=== PATIENT | male | born 1965 | race Caucasian/White ===

== ENCOUNTER 2020-05-08 16:16 | Emergency (ER) | payer OTHER ==
[~2020-05-08 16:16] MED LIST: ASPIRIN EC81 MG PO; ATORVASTATIN CA40 MG PO; BENTYL 20MG TAB20 MG PO; CARVEDILOL6.25 MG PO; CLOPIDOGREL75 MG PO; LISINOPRIL40 MG PO; MELOXICAM15 MG PO; NITROSTAT0.4 MG SL; NORVASC 5 MG TAB5 MG PO; PANTOPRAZOLE SO40 MG PO; VENTOLIN HFA 66.7 GM INH; ZOCOR 40 MG TAB40 MG PO
[2020-05-08 17:32] LABS: HEMOGLOBIN 14.4 gm/dl (14.0-17.5); RED BLOOD COUNT 4.59 M/UL (4.20-5.50); WHITE BLOOD COUNT 10.2 K/UL (4.5-11.0)
[2020-05-08 17:54] LABS: BUN/CREATININE RATIO 13 (0-10)
== END 2020-05-08 18:18 | disposition home or self-care (01) ==
LOC: ER1 16:16
PROVIDERS: Physician Assistant
DX: R60.0 Localized edema (principal); I25.2 Old myocardial infarction; J44.9 Chronic obstructive pulmonary disease, unspecified; I11.9 Hypertensive heart disease without heart failure; Z95.5 Presence of coronary angioplasty implant and graft; F17.210 Nicotine dependence, cigarettes, uncomplicated
CPT/HCPCS: 36415; 71045; 80053; 82550; 82553; 83874; 83880; 84484; 85025; 93005; 99285

== ENCOUNTER → 2020-07-08 | Outpatient (CLI) | payer OTHER ==
[~2020-07-08] MED LIST changes: +ALBUTEROL2.5 MG/3 M INH; +CRESTOR20 MG PO; +K-DUR TAB 10 M10 MEQ PO; +K-DUR TAB 20 M20 MEQ PO; +LASIX 40 MG TAB40 MG PO; +MEDROL DOSEPAK 24 MG PO; +METOPROLOL SUCC25 MG PO; +METOPROLOL SUCC50 MG PO; +NEXIUM20 MG PO; +POTASSIUM CHLO10 ME1 PO; +PRILOSEC OTC20 MG PO; +SPIRIVA RESPIMAT4 GM INH; +SPIRONOLACTONE25 MG PO
== END ==
LOC: HEART 5 10:32
DX: J44.9 Chronic obstructive pulmonary disease, unspecified (principal); I50.9 Heart failure, unspecified
CPT/HCPCS: 71046; 94060; 94729

== ENCOUNTER 2020-07-22 23:10 | Inpatient (IN) | payer OTHER ==
[~2020-07-22] VITALS: Ht 175.3 cm; Wt 119.4 kg
[~2020-07-22 23:10] MED LIST changes: -ALBUTEROL2.5 MG/3 M INH; -CRESTOR20 MG PO; -K-DUR TAB 10 M10 MEQ PO; -K-DUR TAB 20 M20 MEQ PO; -LASIX 40 MG TAB40 MG PO; -MEDROL DOSEPAK 24 MG PO; -METOPROLOL SUCC25 MG PO; -METOPROLOL SUCC50 MG PO; -NEXIUM20 MG PO; -POTASSIUM CHLO10 ME1 PO; -PRILOSEC OTC20 MG PO; -SPIRIVA RESPIMAT4 GM INH; -SPIRONOLACTONE25 MG PO
[2020-07-23 00:25] LABS: HEMOGLOBIN 13.5 gm/dl (14.0-17.5); RED BLOOD COUNT 4.46 M/UL (4.20-5.50); WHITE BLOOD COUNT 11.6 K/UL (4.5-11.0)
[2020-07-23 01:00] LABS: BUN/CREATININE RATIO 21 (0-10)
[2020-07-23] MEDS ORDERED: LASIX 40 MG TAB40 MG PO (09:24)
[2020-07-23] MEDS ORDERED: METOPROLOL SUCC25 MG PO (09:26)
[2020-07-23] MEDS ORDERED: PRILOSEC OTC20 MG PO (09:29)
[2020-07-23] MEDS ORDERED: ALBUTEROL2.5 MG/3 M INH (09:30)
[2020-07-23] MEDS ORDERED: POTASSIUM CHLO10 ME1 PO (09:30)
[2020-07-24 05:34] LABS: HEMOGLOBIN 13.1 gm/dl (14.0-17.5); RED BLOOD COUNT 4.33 M/UL (4.20-5.50)
[2020-07-24 05:36] LABS: WHITE BLOOD COUNT 19.1 K/UL (4.5-11.0)
[2020-07-24 05:50] LABS: BUN/CREATININE RATIO 28 (0-10)
[2020-07-24 11:42] LABS: BORDETELLA PARAPERTUSSIS Not Detected (Not Detectd); BORDETELLA PERTUSSIS Not Detected (Not Detectd); CHLAMYDIA PNEUMONIAE Not Detected (Not Detectd); CORONAVIRUS HKU1 Not Detected (Not Detectd); CORONAVIRUS NL63 Not Detected (Not Detectd); CORONAVIRUS OC43 Not Detected (Not Detectd); CORONOAVIRUS 229E Not Detected (Not Detectd); HUMAN METAPNEUMOVIRUS Not Detected (Not Detectd); HUMAN RHINOVIRUS/ENTEROVIRUS Not Detected (Not Detectd); INFLUENZA A Not Detected (Not Detectd); INFLUENZA B Not Detected (Not Detectd); MYCOPLASMA PNEUMONIAE Not Detected (Not Detectd); PARAINFLUENZA VIRUS 1 Not Detected (Not Detectd); PARAINFLUENZA VIRUS 2 Not Detected (Not Detectd); PARAINFLUENZA VIRUS 3 Not Detected (Not Detectd); PARAINFLUENZA VIRUS 4 Not Detected (Not Detectd); RESPIRATORY SYNCYTIAL VIRUS Not Detected (Not Detectd)
[2020-07-24 14:10] LABS: SARS-CoV-2 NOT DETECTED (Not Detectd)
[2020-07-25 06:07] LABS: HEMOGLOBIN 13.6 gm/dl (14.0-17.5); RED BLOOD COUNT 4.5 M/UL (4.20-5.50)
[2020-07-25 06:10] LABS: WHITE BLOOD COUNT 11.1 K/UL (4.5-11.0)
[2020-07-25 06:38] LABS: BUN/CREATININE RATIO 29 (0-10)
[2020-07-26 03:53] LABS: HEMOGLOBIN 13.2 gm/dl (14.0-17.5); RED BLOOD COUNT 4.36 M/UL (4.20-5.50); WHITE BLOOD COUNT 9.4 K/UL (4.5-11.0)
[2020-07-26 04:08] LABS: BUN/CREATININE RATIO 28 (0-10)
[2020-07-27 03:59] LABS: HEMOGLOBIN 13.3 gm/dl (14.0-17.5); RED BLOOD COUNT 4.42 M/UL (4.20-5.50); WHITE BLOOD COUNT 10.1 K/UL (4.5-11.0)
[2020-07-27 04:56] LABS: BUN/CREATININE RATIO 33 (0-10)
[2020-07-28 07:10] LABS: BUN/CREATININE RATIO 27 (0-10)
[2020-07-29 06:41] LABS: RED BLOOD COUNT 4.28 M/UL (4.20-5.50); WHITE BLOOD COUNT 9.9 K/UL (4.5-11.0)
[2020-07-29 07:16] LABS: BUN/CREATININE RATIO 31 (0-10)
[2020-07-29 08:15] LABS: ANTISTREPTOLYSIN O AB 72.1 IU/mL (0.0-200.0); COMPLEMENT C3, SERUM 160 mg/dL (82-167); COMPLEMENT C4, SERUM 25 mg/dL (12-38)
[2020-07-29 11:15] LABS: HBSAG SCREEN Negative (Negative); HEP B CORE AB, TOT Negative (Negative); HEP C VIRUS AB <0.1 (0.0-0.9)
[2020-07-29 12:15] LABS: ANTI-DSDNA ANTIBODIES 1 IU/mL (0-9)
[2020-07-29 16:11] LABS: A/G RATIO 0.9 (0.7-1.7); ALBUMIN 2.6 g/dL (2.9-4.4); ALPHA-1-GLOBULIN 0.3 g/dL (0.0-0.4); ALPHA-2-GLOBULIN 0.8 g/dL (0.4-1.0); ATYPICAL PANCA <1:20 titer (Neg:<1:20); BETA GLOBULIN 1.2 g/dL (0.7-1.3); CYTOPLASMIC (C-ANCA) 1:20 titer (Neg:<1:20); GAMMA GLOBULIN 0.7 g/dL (0.4-1.8); IMMUNOGLOBULIN A, QN, SERUM 461 mg/dL (90-386); IMMUNOGLOBULIN G, QN, SERUM 612 mg/dL (603-1613); IMMUNOGLOBULIN M, QN, SERUM 71 mg/dL (20-172); M-SPIKE Not Observed g/dL (Not Observed); PERINUCLEAR (P-ANCA) <1:20 titer (Neg:<1:20); PROTEIN, TOTAL, SERUM 5.6 g/dL (6.0-8.5)
[2020-07-30 07:57] LABS: BUN/CREATININE RATIO 35 (0-10)
[2020-08-02 14:09] LABS: M-SPIKE, % Not Observed % (Not Observed); PROTEIN,TOTAL,URINE 159.1 mg/dL (Not Estab.)
[2020-08-03 15:14] LABS: ATYPICAL PANCA <1:20 titer (Neg:<1:20); PERINUCLEAR (P-ANCA) <1:20 titer (Neg:<1:20)
== END 2020-07-30 12:32 | disposition home health service (06) | DRG 193 ==
LOC: ER1 23:10 → CDU 07-23 04:00 → MED SURG 4 07-23 04:00 → CDU 07-23 04:00 → MED SURG 4 07-23 18:51
PROVIDERS: Internal Medicine; Internal Medicine Nephrology; Physician Assistant; ADMIT Internal Medicine
DX: J18.9 Pneumonia, unspecified organism (principal); J96.01 Acute respiratory failure with hypoxia; I16.9 Hypertensive crisis, unspecified; N04.9 Nephrotic syndrome with unspecified morphologic changes; J81.1 Chronic pulmonary edema; E87.3 Alkalosis; J44.1 Chronic obstructive pulmonary disease with (acute) exacerbation; I25.10 Atherosclerotic heart disease of native coronary artery without angina pectoris; E78.5 Hyperlipidemia, unspecified; G47.33 Obstructive sleep apnea (adult) (pediatric); E88.09 Other disorders of plasma-protein metabolism, not elsewhere classified; Z20.822 Contact with and (suspected) exposure to COVID-19; I50.813 Acute on chronic right heart failure; F41.9 Anxiety disorder, unspecified; Z72.0 Tobacco use; Z82.49 Family history of ischemic heart disease and other diseases of the circulatory system; I25.2 Old myocardial infarction; Z83.3 Family history of diabetes mellitus; I10 Essential (primary) hypertension
CPT/HCPCS: ECHO; 0240U; 36415; 36600; 71045; 80048; 80053; 80076; 81001; 82550; 82553; 82570; 82784; 82803; 83520; 83605; 83735; 83874; 83880; 83883; 84155; 84156; 84165; 84166; 84484; 85025; 85027; 85379; 85610; 85730; 86038; 86060; 86160; 86162; 86225; 86256; 86334; 86335; 86704; 86706; 86708; 86803; 87040; 87340; 87633; 93005; 93306; 93970; 94640; 94664; 94760; 96365; 96366; 96368; 96375; 99285; J0456; J0696; J1205; J1650; J1940; J2405; J2930; J7030; P9047; Q9967

== ENCOUNTER → 2020-08-05 | Outpatient (CLI) | payer OTHER ==
[~2020-08-05] MED LIST changes: +ALBUTEROL2.5 MG/3 M INH; +CRESTOR20 MG PO; +K-DUR TAB 10 M10 MEQ PO; +K-DUR TAB 20 M20 MEQ PO; +LASIX 40 MG TAB40 MG PO; +MEDROL DOSEPAK 24 MG PO; +METOPROLOL SUCC25 MG PO; +METOPROLOL SUCC50 MG PO; +NEXIUM20 MG PO; +POTASSIUM CHLO10 ME1 PO; +PRILOSEC OTC20 MG PO; +SPIRIVA RESPIMAT4 GM INH; +SPIRONOLACTONE25 MG PO
== END ==
LOC: SLEEP 12:55
DX: G47.10 Hypersomnia, unspecified (principal); G47.30 Sleep apnea, unspecified; J44.9 Chronic obstructive pulmonary disease, unspecified; E66.01 Morbid (severe) obesity due to excess calories; Z72.0 Tobacco use; R60.9 Edema, unspecified
CPT/HCPCS: 95810

== ENCOUNTER 2020-09-25 20:34 | Inpatient (IN) | payer OTHER ==
[~2020-09-25] VITALS: Ht 175.3 cm; Wt 104.0 kg
[~2020-09-25 20:34] MED LIST changes: -CRESTOR20 MG PO; -K-DUR TAB 10 M10 MEQ PO; -K-DUR TAB 20 M20 MEQ PO; -MEDROL DOSEPAK 24 MG PO; -METOPROLOL SUCC50 MG PO; -NEXIUM20 MG PO; -SPIRIVA RESPIMAT4 GM INH; -SPIRONOLACTONE25 MG PO
[2020-09-25 22:16] LABS: HEMOGLOBIN 12.8 gm/dl (14.0-17.5); RED BLOOD COUNT 4.24 M/UL (4.20-5.50); WHITE BLOOD COUNT 14.7 K/UL (4.5-11.0)
[2020-09-25 22:36] LABS: BUN/CREATININE RATIO 15 (0-10)
[2020-09-26] MEDS ORDERED: CRESTOR20 MG PO (13:50)
[2020-09-26] MEDS ORDERED: SPIRONOLACTONE25 MG PO (13:50)
[2020-09-26] MEDS ORDERED: METOPROLOL SUCC50 MG PO (13:51)
[2020-09-26] MEDS ORDERED: NEXIUM20 MG PO (13:53)
[2020-09-26] MEDS ORDERED: SPIRIVA RESPIMAT4 GM INH (13:53)
[2020-09-27 07:00] LABS: HEMOGLOBIN 12.8 gm/dl (14.0-17.5); RED BLOOD COUNT 4.21 M/UL (4.20-5.50)
[2020-09-27 07:31] LABS: BUN/CREATININE RATIO 32 (0-10)
[2020-09-28 02:47] LABS: HEMOGLOBIN 12.6 gm/dl (14.0-17.5); RED BLOOD COUNT 4.24 M/UL (4.20-5.50); WHITE BLOOD COUNT 16.2 K/UL (4.5-11.0)
[2020-09-28 03:04] LABS: BUN/CREATININE RATIO 30 (0-10)
[2020-09-29 04:08] LABS: HEMOGLOBIN 12.4 gm/dl (14.0-17.5); RED BLOOD COUNT 4.19 M/UL (4.20-5.50); WHITE BLOOD COUNT 12.8 K/UL (4.5-11.0)
[2020-09-29 04:31] LABS: BUN/CREATININE RATIO 28 (0-10)
[2020-09-29] MEDS ORDERED: K-DUR TAB 10 M10 MEQ PO (10:03)
[2020-09-29] MEDS ORDERED: MEDROL DOSEPAK 24 MG PO (10:03)
--- NOTE | 2020-09-29 11:21 | NUR ---
PT O2 SATURATION IS 94% ON ROOM AIR
[2020-09-29] MEDS ORDERED: K-DUR TAB 20 M20 MEQ PO (12:47)
--- NOTE | 2020-09-29 12:51 | NUR ---
PT WAS DISCHARGED BEFORE FINAL DOSE OF POTASSIUM COULD BE ADMINSTERED. IS AWARE AND HAS SENT AN ELECTRONIC PRESCRIPTION FOR A 1 TIME DOSE OF POTASSIUM. [employer] IS AWARE AND PT HAS BEEN NOTIFED WELL.
== END 2020-09-29 12:16 | disposition home or self-care (01) | DRG 291 ==
LOC: ER1 20:34 → CDU 09-26 02:56 → MED SURG 4 09-26 04:00
PROVIDERS: Internal Medicine Infectious Disease; Physician Assistant; Physician Assistant Medical; ADMIT Internal Medicine
DX: I11.0 Hypertensive heart disease with heart failure (principal); J96.01 Acute respiratory failure with hypoxia; J44.1 Chronic obstructive pulmonary disease with (acute) exacerbation; Z20.822 Contact with and (suspected) exposure to COVID-19; I50.33 Acute on chronic diastolic (congestive) heart failure; E87.6 Hypokalemia; E78.5 Hyperlipidemia, unspecified; F17.210 Nicotine dependence, cigarettes, uncomplicated; I25.10 Atherosclerotic heart disease of native coronary artery without angina pectoris; E66.9 Obesity, unspecified; Z68.30 Body mass index [BMI] 30.0-30.9, adult; Z95.1 Presence of aortocoronary bypass graft; I25.2 Old myocardial infarction; Z79.82 Long term (current) use of aspirin; Z79.02 Long term (current) use of antithrombotics/antiplatelets; Z79.899 Other long term (current) drug therapy
CPT/HCPCS: 36415; 36600; 71045; 80048; 80053; 82550; 82553; 82803; 83605; 83735; 83874; 83880; 84484; 85025; 85027; 87040; 93005; 94640; 94664; 94760; 96374; 96375; 99285; C9113; J1650; J1885; J1940; J2920; J2930; Q9967; U0002

== ENCOUNTER 2021-04-11 07:44 | Inpatient (IN) | payer OTHER ==
[~2021-04-11] VITALS: Ht 175.3 cm; Wt 108.9 kg
[~2021-04-11 07:44] MED LIST changes: +CRESTOR20 MG PO; +K-DUR TAB 10 M10 MEQ PO; +K-DUR TAB 20 M20 MEQ PO; +MEDROL DOSEPAK 24 MG PO; +METOPROLOL SUCC50 MG PO; +NEXIUM20 MG PO; +SPIRIVA RESPIMAT4 GM INH; +SPIRONOLACTONE25 MG PO
[2021-04-11 08:33] LABS: HEMOGLOBIN 12.7 gm/dl (14.0-17.5); RED BLOOD COUNT 4.35 M/UL (4.20-5.50); WHITE BLOOD COUNT 14.5 K/UL (4.5-11.0)
[2021-04-11 08:58] LABS: BUN/CREATININE RATIO 14 (0-10)
[2021-04-11] MEDS ORDERED: POTASSIUM CHLO10 ME1 PO (13:45)
[2021-04-11] MEDS ORDERED: LISINOPRIL40 MG PO (13:46)
[2021-04-11] MEDS ORDERED: ASPIRIN EC81 MG PO (13:47)
[2021-04-11] MEDS ORDERED: CLOPIDOGREL75 MG PO (13:47)
[2021-04-11] MEDS ORDERED: PROAIR HFA8.5 GM INH (13:47)
[2021-04-11] MEDS ORDERED: CARTIA XT120 MG PO (13:49)
[2021-04-11] MEDS ORDERED: ZOCOR 40 MG TAB40 MG PO (13:50)
[2021-04-11] MEDS ORDERED: SYMBICORT 80-10.2 GM INH (13:50)
[2021-04-12 04:14] LABS: HEMOGLOBIN 12.7 gm/dl (14.0-17.5); RED BLOOD COUNT 4.36 M/UL (4.20-5.50); WHITE BLOOD COUNT 17.1 K/UL (4.5-11.0)
[2021-04-12 04:49] LABS: BUN/CREATININE RATIO 23 (0-10)
[2021-04-13 06:51] LABS: HEMOGLOBIN 12.2 gm/dl (14.0-17.5); RED BLOOD COUNT 4.25 M/UL (4.20-5.50)
[2021-04-13 06:59] LABS: WHITE BLOOD COUNT 24.5 K/UL (4.5-11.0)
[2021-04-13 07:34] LABS: BUN/CREATININE RATIO 31 (0-10)
--- NOTE | 2021-04-13 14:50 | NUR ---
WALKED PT WITHOUT O2 PER , PT DROPPED TO 87%. PT WILL NEED HOME O2 AT 2L
--- NOTE | 2021-04-13 14:56 | NUR ---
ROOM STAT 87%. HOME O2 NEEDED AT 2L
[2021-04-14] MEDS ORDERED: OMNICEF 300 MG300 MG PO (09:37)
[2021-04-14] MEDS ORDERED: MEDROL DOSEPAK 24 MG PO (09:37)
== END 2021-04-14 12:15 | disposition home or self-care (01) | DRG 193 ==
LOC: ER1 07:44 → 3 EAST 09:31 → CDU 09:31 → 3 EAST 04-12 04:08 → M/S 04-12 19:20
PROVIDERS: Physician Assistant; ADMIT Internal Medicine
DX: J18.9 Pneumonia, unspecified organism (principal); I50.33 Acute on chronic diastolic (congestive) heart failure; J96.01 Acute respiratory failure with hypoxia; J44.0 Chronic obstructive pulmonary disease with (acute) lower respiratory infection; J44.1 Chronic obstructive pulmonary disease with (acute) exacerbation; Z20.822 Contact with and (suspected) exposure to COVID-19; I25.10 Atherosclerotic heart disease of native coronary artery without angina pectoris; I11.0 Hypertensive heart disease with heart failure; F17.200 Nicotine dependence, unspecified, uncomplicated; E78.5 Hyperlipidemia, unspecified; R00.0 Tachycardia, unspecified; E66.01 Morbid (severe) obesity due to excess calories; G47.33 Obstructive sleep apnea (adult) (pediatric); Z99.81 Dependence on supplemental oxygen; Z79.899 Other long term (current) drug therapy; Z79.82 Long term (current) use of aspirin; Z95.5 Presence of coronary angioplasty implant and graft; Z83.3 Family history of diabetes mellitus; Z82.49 Family history of ischemic heart disease and other diseases of the circulatory system; I25.2 Old myocardial infarction; Z68.35 Body mass index [BMI] 35.0-35.9, adult
CPT/HCPCS: 0240U; 36415; 36600; 71045; 71046; 80048; 80053; 82550; 82553; 82803; 83605; 83874; 84484; 85025; 87040; 93005; 94640; 94660; 94664; 94760; 96365; 96366; 96375; 99285; J0456; J0696; J1100; J1940; J2405; J2920; J2930; J7030; J7040